=== PATIENT | female | born 1965 | race Caucasian/White ===

== ENCOUNTER 2020-08-09 15:22 | Emergency (ER) | payer BC ==
[~2020-08-09] VITALS: Ht 167.6 cm; Wt 90.7 kg
[2020-08-09] MEDS ORDERED: IBUPROFEN600 MG PO (18:25)
[2020-08-09] MEDS ORDERED: FLAGYL500 MG PO (18:25)
[2020-08-09] MEDS ORDERED: DOXYCYCLINE100 M3 PO (18:25)
== END 2020-08-09 18:33 | disposition home or self-care (01) ==
LOC: ED 15:22
DX: S91.052A Open bite, left ankle, initial encounter (principal); Z88.0 Allergy status to penicillin; W54.0XXA Bitten by dog, initial encounter; Y93.89 Activity, other specified; Y92.89 Other specified places as the place of occurrence of the external cause; Y99.8 Other external cause status

== ENCOUNTER → 2020-09-23 | Outpatient (CLI) | payer BC ==
[~2020-09-23] MED LIST: DOXYCYCLINE100 M3 PO; FLAGYL500 MG PO; IBUPROFEN600 MG PO
== END | disposition home or self-care (01) ==
LOC: US 14:44
PROVIDERS: ATTEND Podiatrist Foot & Ankle Surgery
DX: R60.0 Localized edema (principal)